=== PATIENT | female | born 1970 | race Hispanic/Latino ===

== ENCOUNTER 2016-09-22 21:22 | Inpatient (IN) | payer BC ==
[2016-09-22 21:37] VITALS: BMI 35.2
[2016-09-22] MEDS ORDERED: Morphine 4 mg/ml ISec IVP STA (21:57)
[2016-09-22] MEDS ORDERED: Sodium Chloride 0.9% 1,000 ML IV STA (21:57)
[2016-09-22 22:27] LABS: ADD MANUAL DIFF? NO
[2016-09-22 22:30] LABS: BASO # 0.03 K/mm3 (0.0-2.0); BASO % 0.3 % (0.0-3.0); EOS # 0.2 (0.0-0.7); EOS % 1.6 % (1.5-5.0); GRAN # 9.69 (1.4-6.5); GRAN % 81.6 % (50.0-68.0); HEMATOCRIT 38.8 % (36.0-48.0); LYMPH # 1.4 (1.2-3.4); LYMPH % 11.8 % (22.0-35.0); MEAN CELL VOLUME 97.7 fL (80.0-105.0); MEAN CORPUSCULAR HGB CONC 33.8 g/dl (31.0-37.0); MONO # 0.6 (0.1-0.6); MONO % 4.7 % (1.0-6.0); PH,URINE 6.5 (4.7-8.0); PLATELET COUNT 272 10^3/uL (120.0-450.0); RED CELL DISTRIBUTION WIDTH 12.6 % (11.5-14.5); URINE BILIRUBIN NEGATIVE (NEGATIVE); URINE BLOOD SMALL (NEGATIVE); URINE GLUCOSE (UA) NEGATIVE (NEGATIVE); URINE KETONE NEGATIVE (NEGATIVE); URINE LEUKOCYTE ESTERASE MODERATE Leu/uL (NEGATIVE); URINE PROTEIN NEGATIVE mg/dL (<30 mg/dL); URINE UROBILINOGEN 0.2 E.U./dL (<1 E.U./dL); WHITE BLOOD COUNT 11.9 10^3/ul (4.5-11.0)
[2016-09-22 22:31] LABS: URINE APPEARANCE SL CLOUDY (CLEAR); URINE COLOR YELLOW (YELLOW)
[2016-09-22 22:38] LABS: URINE BACTERIA FEW (NEG); URINE RBC 0 - 2 /hpf (0-2); URINE WBC 25 - 30 /hpf (0-6)
[2016-09-22 22:45] LABS: ALB/GLOB RATIO 1.4 (1.1-1.8); ALKALINE PHOSPHATASE 99 U/L (38-133); ALT/SGPT 37 U/L (7-56); AST/SGOT 23 U/L (15-39); BILIRUBIN,TOTAL 0.7 mg/dL (0.2-1.3); BLOOD UREA NITROGEN 17 mg/dL (7-21); CALCIUM 9.5 mg/dL (8.4-10.5); CARBON DIOXIDE 25 mmol/L (21-33); GFR AFRICAN-AMERICAN > 60; GLUCOSE,RANDOM 97 mg/dL (70-110); POTASSIUM 4.4 mmol/L (3.6-5.0); SODIUM 138 mmol/L (132-148); TOTAL PROTEIN 7.1 g/dL (5.8-8.3)
[2016-09-22 22:48] LABS: CHLORIDE 102 mmol/L (98-107)
[2016-09-22] MEDS ORDERED: Iohexol 350 MG/100 ML VIAL ONE (23:25)
[2016-09-23] MEDS ORDERED: Ciprofloxacin 400mg/200ml D5W 400 MG/200 ML BAG IVPB STA (01:28)
[2016-09-23] MEDS ORDERED: metroNIDAZOLE IV 500 mg/100 ml 500 MG/100 ML BAG IVPB STA (01:29)
[2016-09-23] MEDS ORDERED: Morphine 4 mg/ml ISec IVP STA (01:30)
--- NOTE | 2016-09-23 01:35 | ED PDOC ---
Arrival/HPI - General Chief Complaint: Abdominal Pain Time Seen by Provider: 09/22/16 21:56 Historian: Patient - History of Present Illness Narrative History of Present Illness (Text): 09/23/16 03:31 46yr old female presents today with left lower quadrant abdominal pain with hx of diverticulitis. pt states she had a 2 weeks ago. pt states that she started yesterday with slight left sided abdominal cramping and pain very similar to her previous bouts of diverticulitis in the past. Patient states she' s been taking Percocet for pain at home without improvement in her symptoms. Patient presents today with severe left lower quadrant abdominal pain that is drastically worsened since yesterday. Complaining of urinary frequency no dysuria or urgency. Patient states the pain radiates to the back. She describes the pain as sharp stabbing and constant. She denies nausea or vomiting. No dizziness or weakness. No other complaints Past Medical History - Provider Review Nursing Documentation Reviewed: Yes - Travel History Have you recently traveled outside [place] w/in the past 3 mons?: No - Infectious Disease Hx of Infectious Diseases: None - Cardiac Hx Cardiac Disorders: No - Pulmonary Hx Respiratory Disorders: No - Neurological Hx Neurological Disorder: No - HEENT Hx HEENT Disorder: No - Renal Hx Renal Disorder: No - Endocrine/Metabolic Hx Endocrine Disorders: No - Hematological/Oncological Hx Blood Disorders: No - Integumentary Hx Dermatological Disorder: No - Musculoskeletal/Rheumatological Hx Musculoskeletal Disorders: No - Gastrointestinal Hx Gastrointestinal Disorders: Yes Hx Diverticulitis: Yes (2010) - Genitourinary/Gynecological Hx Genitourinary Disorders: No - Psychiatric Hx Psychophysiologic Disorder: No Hx Substance Use: No - Surgical History Hx Section: Yes (x3) Hx Cholecystectomy: Yes Other/Comment: tummy tuck and breast lift - Anesthesia Hx Anesthesia: Yes Hx Anesthesia Reactions: No Hx Malignant Hyperthermia: No Family/Social History - Physician Review Nursing Documentation Reviewed: Yes Family/Social History: Unknown Family HX Smoking Status: denies Hx Alcohol Use: No Hx Substance Use: No Allergies/Home Meds Allergies/Adverse Reactions: Allergies No Known Allergies Allergy (Verified 09/22/16 21:37) Home Medications: Home Meds Medication Instructions Recorded Confirmed Vit No.126/Iron/Folic 1 tab PO DAILY 09/23/16 09/23/16 [Prenavite] Review of Systems - Review of Systems Constitutional: absent: Fatigue, Fevers Respiratory: absent: SOB, Cough Cardiovascular: absent: Chest Pain, Palpitations Gastrointestinal: Abdominal Pain. absent: Constipation, Nausea, Vomiting, Appetite Changes Genitourinary Female: Frequency. absent: Dysuria, Hematuria, Vaginal Bleeding, Vaginal Discharge Musculoskeletal: Back Pain. absent: Arthralgias, Neck Pain Skin: absent: Rash, Pruritis Neurological: absent: Headache, Dizziness Psychiatric: absent: Anxiety, Depression Physical Exam Vital Signs Reviewed: Yes Vital Signs Temp Pulse Resp BP Pulse Ox 09/23/16 02:34 87 16 109/71 98 09/23/16 02:27 89 16 109/71 96 09/23/16 00:39 99.3 F 88 16 120/75 95 09/22/16 21:37 98.1 F 108 H 18 127/89 97 Temperature: Afebrile Blood Pressure: Normal Pulse: Tachycardic Respiratory Rate: Normal Appearance: Positive for: Well-Appearing, Non-Toxic, Uncomfortable Pain Distress: Moderate Mental Status: Positive for: Alert and Oriented X 3 - Systems Exam Head: Present: Atraumatic Mouth: Present: Moist Mucous Membranes Neck: Present: Normal Range of Motion Respiratory/Chest: Present: Clear to Auscultation, Good Air Exchange. No: Respiratory Distress, Accessory Muscle Use Cardiovascular: Present: Regular Rate and Rhythm, Normal S1, S2. No: Murmurs Abdomen: Present: Tenderness (+ LLQ tenderness. ), Normal Bowel Sounds, Guarding. No: Distention, Peritoneal Signs, Rebound, McBurney's Point Tender Back: Present: Normal Inspection. No: CVA Tenderness, Midline Tenderness, Paraspinal Tenderness Upper Extremity: Present: Normal Inspection Lower Extremity: Present: Normal Inspection Neurological: Present: GCS=15 Skin: Present: Warm, Dry, Normal Color. No: Rashes Psychiatric: Present: Alert, Oriented x 3 Medical Decision Making ED Course and Treatment: 09/23/16 01:35 Patient is nontoxic well appearing with stable vital signs presenting with [ severe] abdominal pain CBC wbc;11.9 CMP wnl Urinalysis: moderate leukocytes, 20-25wbcs. CAT scan: FINDINGS: Lower thorax: No acute findings. ABDOMEN: Liver: No acute findings. No mass. Gallbladder and bile ducts: No acute findings. No calcified stones. No ductal dilation. Pancreas: No acute findings. No mass. No ductal dilation. Spleen: No acute findings. No splenomegaly. Adrenals: No acute findings. No mass. Kidneys and ureters: No acute findings. No solid mass. No hydronephrosis. Stomach and bowel: There is diverticulosis. There is bowel wall thickening and a moderate amount of stranding adjacent to the sigmoid colon. The small adjacent fluid. Appendix: No findings to suggest acute appendicitis. PELVIS: Bladder: No acute findings. No mass. Reproductive: No acute findings. ABDOMEN and PELVIS: Intraperitoneal space: No acute findings. No free air. No significant fluid collection. Bones/joints: There are bilateral L5 pars interarticularis defects. No acute fracture. No dislocation. Soft tissues: Postoperative changes noted in the lower intra-abdominal wall. There is small fluid within the subcutaneous fatty tissues, possibly postoperative. Vasculature: No acute findings. No abdominal aortic aneurysm. Lymph nodes: No acute findings. No enlarged lymph nodes. IMPRESSION: 1. There is diverticulosis. There is bowel wall thickening and a moderate amount of stranding adjacent to the sigmoid colon. The small adjacent fluid. Findings consistent with diverticulitis. 2. Postoperative changes noted in the lower intra-abdominal wall. There is small fluid within the subcutaneous fatty tissues, possibly postoperative. Patient reassessment: pt with continued pain despite morphine and toradol. pt of dr. fowler/orly; case discussed with dr. sanches; accepts admission to med/surg for diverticulitis, UTI, and leukocytosis. blood cultures pending cipro IV and flagyl IV ordered. Discussed all results with patient in depth Impression: diverticulitis, UTI, leukocytosis admit to med/surg. - Lab Interpretations Lab Results: 09/22/16 22:21 09/22/16 22:21 Lab Results 09/22/16 22:21: WBC 11.9 H D, RBC 3.97, Hgb 13.1, Hct 38.8, MCV 97.7, MCH 33.0, MCHC 33.8, RDW 12.6, Plt Count 272, MPV 10.0, Gran % 81.6 H, Lymph % (Auto) 11.8 L, [place] % (Auto) 4.7, Eos % (Auto) 1.6, Baso % (Auto) 0.3, Gran # 9.69 H, Lymph # 1.4, [place] # 0.6, Eos # 0.2, Baso # 0.03 09/22/16 22:21: Sodium 138, Potassium 4.4, Chloride 102, Carbon Dioxide 25, Anion Gap 15, BUN 17, Creatinine 0.7, Est GFR ( Amer) > 60, Est GFR (Non- Af Amer) > 60, Random Glucose 97, Calcium 9.5, Total Bilirubin 0.7, AST 23, ALT 37, Alkaline Phosphatase 99, Total Protein 7.1, Albumin 4.1, Globulin 3.0, Albumin/Globulin Ratio 1.4 09/22/16 22:21: Urine Color Yellow, Urine Appearance Sl cloudy, Urine pH 6.5, Ur Specific [place] 1.020, Urine Protein Negative, Urine Glucose (UA) Negative, Urine Ketones Negative, Urine Blood Small H, Urine Nitrate Negative, Urine Bilirubin Negative, Urine Urobilinogen 0.2, Ur Leukocyte Esterase Moderate H, Urine RBC 0 - 2, Urine WBC 25 - 30, Ur Epithelial Cells 1 - 3, Urine Bacteria Few - RAD Interpretation Radiology Orders: 09/22/16 21:57 ABD & PELVIS IV CONTRAST ONLY [CT] Stat CHEST PORTABLE [RAD] Stat - Medication Orders Current Medication Orders: Metronidazole (Flagyl) 500 mg in 100 mls @ 100 mls/hr IVPB Q8H DANIELLE PRN Reason: Protocol Ceftriaxone Sodium (Rocephin 1 Gram Ivpb) 1 gm in 100 mls @ 100 mls/hr IVPB DAILY DANIELLE PRN Reason: Protocol Sodium Chloride (Sodium Chloride 0.9%) 1,000 mls @ 100 mls/hr IV .Q10H DANIELLE Morphine Sulfate (Morphine) 4 mg IVP Q3H PRN PRN Reason: Pain, severe (8-10) Last Admin: 09/23/16 02:57 Dose: 4 mg Morphine Sulfate (Morphine) 2 mg IVP Q3H PRN PRN Reason: Pain, moderate (4-7) Ondansetron HCl (Zofran Inj) 4 mg IVP Q6H PRN PRN Reason: Nausea/Vomiting Pantoprazole Sodium (Protonix Inj) 40 mg IVP DAILY DANIELLE Discontinued Medications Sodium Chloride (Sodium Chloride 0.9%) 1,000 mls @ 999 mls/hr IV .Q1H1M STA Stop: 09/22/16 22:57 Last Admin: 09/22/16 22:25 Dose: 999 mls/hr Ciprofloxacin (Cipro 400mg/200ml Dsw) 400 mg in 200 mls @ 133.3 mls/hr IVPB STAT STA PRN Reason: Protocol Stop: 09/23/16 02:58 Metronidazole (Flagyl) 500 mg in 100 mls @ 100 mls/hr IVPB STAT STA PRN Reason: Protocol Stop: 09/23/16 02:28 Last Admin: 09/23/16 01:43 Dose: 100 mls/hr Iohexol (Omnipaque 350 100 Ml) Confirm Administered Dose 350 mg .ROUTE .STK-MED ONE Stop: 09/22/16 23:26 Ketorolac Tromethamine (Toradol) 30 mg IVP STAT STA Stop: 09/22/16 23:16 Last Admin: 09/23/16 00:17 Dose: 30 mg Morphine Sulfate (Morphine) 4 mg IVP STAT STA Stop: 09/22/16 21:58 Last Admin: 09/22/16 22:24 Dose: 4 mg Morphine Sulfate (Morphine) 4 mg IVP STAT STA Stop: 09/23/16 01:31 Last Admin: 09/23/16 01:46 Dose: Not Given Non-Admin Reason: Patient Refused Ondansetron HCl (Zofran Inj) 4 mg IVP STAT STA Stop: 09/22/16 21:58 Last Admin: 09/22/16 22:25 Dose: 4 mg Disposition/Present on Arrival - Present on Arrival Any Indicators Present on Arrival: No History of DVT/PE: No History of Uncontrolled Diabetes: No Urinary Catheter: No History of Decub. Ulcer: No History Surgical Site Infection Following: None - Disposition Have Diagnosis and Disposition been Completed?: Yes Diagnosis: Diverticulitis, UTI (urinary tract infection), Leukocytosis Disposition: HOSPITALIZED Disposition Time: 01:35 Patient Plan: Observation Patient Problems: Current Active Problems Problem Status Onset Diverticulitis Acute Condition: FAIR
--- NOTE | 2016-09-23 02:03 | CP.PCM.HP ---
History of Present Illness - History of Present Illness History of Present Illness: CC: abdominal pain x 2 days HPI: 46 year old female with a past medical history of Diverticulosis presents to the emergency department with the compalint of RLQ and LLQ abdominal pain x 2 days. She reports the pain as dull and crampy with occasional sharp pains. She states trying to take po percocet at home with little to no relief so she came in to the emergency department. She denies any complaints of chest pain, shortness of breath, fever, nausea, vomiting, chills, dysuria or diarrhea. She states the pain is similar to her episodes of diverticulitis in the past which has been going on for 8 years. She also gave 2 weeks ago via and had no other complications. Past medical history: Diverticulosis x 8 years Allergies: NKDA Fam Hx: father -Diabetes Soc Hx: denies tobacco/etoh/illicit drug use Home meds: percocet prn stool softeners vitamins Present on Admission - Present on Admission Any Indicators Present on Admission: No Past Patient History - Infectious Disease Hx of Infectious Diseases: None - Past Social History Smoking Status: denies - CARDIAC Hx Cardiac Disorders: No - PULMONARY Hx Respiratory Disorders: No - NEUROLOGICAL Hx Neurological Disorder: No - HEENT Hx HEENT Problems: No - RENAL Hx Chronic Kidney Disease: No - ENDOCRINE/METABOLIC Hx Endocrine Disorders: No - HEMATOLOGICAL/ONCOLOGICAL Hx Blood Disorders: No - INTEGUMENTARY Hx Dermatological Problems: No - MUSCULOSKELETAL/RHEUMATOLOGICAL Hx Musculoskeletal Disorders: No - GASTROINTESTINAL Hx Gastrointestinal Disorders: Yes Hx Diverticulitis: Yes (2010) - GENITOURINARY/GYNECOLOGICAL Hx Genitourinary Disorders: No - PSYCHIATRIC Hx Psychophysiologic Disorder: No Hx Substance Use: No - SURGICAL HISTORY Hx Section: Yes (x3) Hx Cholecystectomy: Yes Other/Comment: tummy tuck and breast lift - ANESTHESIA Hx Anesthesia: Yes Hx Anesthesia Reactions: No Hx Malignant Hyperthermia: No Meds Allergies/Adverse Reactions: Allergies Allergy/AdvReac Type Severity Reaction Status Date / Time No Known Allergies Allergy Verified 09/22/16 21:37 Physical Exam - Constitutional Appears: Well, Non-toxic - Head Exam Head Exam: ATRAUMATIC, NORMOCEPHALIC - Eye Exam Eye Exam: EOMI, Normal appearance - ENT Exam ENT Exam: Mucous Membranes Moist - Neck Exam Neck exam: Positive for: Full Rom - Respiratory Exam Respiratory Exam: Clear to Auscultation Bilateral, NORMAL BREATHING PATTERN. absent: Rhonchi, Wheezes - Cardiovascular Exam Cardiovascular Exam: REGULAR RHYTHM, +S1, +S2 - GI/Abdominal Exam GI & Abdominal Exam: Normal Bowel Sounds, Soft, Tenderness (RLQ LLQ mildly tender to palpation). absent: Guarding, Rebound Additional comments: midline scar - Rectal Exam Rectal Exam: Deferred - Extremities Exam Extremities exam: Positive for: normal inspection. Negative for: calf tenderness - Neurological Exam Neurological exam: Alert, Oriented x3 - Psychiatric Exam Psychiatric exam: Normal Affect, Normal Mood - Skin Skin Exam: Dry, Intact, Normal Color, Warm Results - Vital Signs Recent Vital Signs: Last Vital Signs Temp 99.3 F 09/23/16 00:39 Pulse 88 09/23/16 00:39 Resp 16 09/23/16 00:39 BP 120/75 09/23/16 00:39 Pulse Ox 95 09/23/16 00:39 - Labs Result Diagrams: 09/22/16 22:21 09/22/16 22:21 Labs: Laboratory Results - last 24 hr 09/22/16 09/22/16 09/22/16 22:21 22:21 22:21 WBC 11.9 H D RBC 3.97 Hgb 13.1 Hct 38.8 MCV 97.7 MCH 33.0 MCHC 33.8 RDW 12.6 Plt Count 272 MPV 10.0 Gran % 81.6 H Lymph % (Auto) 11.8 L [place] % (Auto) 4.7 Eos % (Auto) 1.6 Baso % (Auto) 0.3 Gran # 9.69 H Lymph # 1.4 [place] # 0.6 Eos # 0.2 Baso # 0.03 Sodium 138 Potassium 4.4 Chloride 102 Carbon Dioxide 25 Anion Gap 15 BUN 17 Creatinine 0.7 Est GFR ( Amer) > 60 Est GFR (Non-Af Amer) > 60 Random Glucose 97 Calcium 9.5 Total Bilirubin 0.7 AST 23 ALT 37 Alkaline Phosphatase 99 Total Protein 7.1 Albumin 4.1 Globulin 3.0 Albumin/Globulin Ratio 1.4 Urine Color Yellow Urine Appearance Sl cloudy Urine pH 6.5 Ur Specific [place] 1.020 Urine Protein Negative Urine Glucose (UA) Negative Urine Ketones Negative Urine Blood Small H Urine Nitrate Negative Urine Bilirubin Negative Urine Urobilinogen 0.2 Ur Leukocyte Esterase Moderate H Urine RBC 0 - 2 Urine WBC 25 - 30 Ur Epithelial Cells 1 - 3 Urine Bacteria Few - EKG Data EKG Interpreted by: Myself EKG shows normal: Sinus rhythm - Imaging and Cardiology CT scan - abdomen Status: Report reviewed by me (diverticulitis and surrounding fat stranding noted) Assessment & Plan - Assessment and Plan (Free Text) Assessment: 46 year old female with a past medical history Diverticulosis comes in with a 2 day history of abdominal pain and is found to have diverticulitis along with a urinary tract infection. Plan: 1) Diverticulitis - will try a liquid diet in the AM; Morphine 2 and 4mg IV Q3 prn for mod/severe pain; flagyl started in the emergency department so we'll continue that for now 2) urinary tract infection - blood and urine cultures drawn and sent; leukocytosis noted, will treat with ceftriaxone IV 3) GI/DVT ppx - will place on po protonix and SCD's 4) Post- - patient will need education depending upon choice of antibiotics on discharge before resuming breast feeding
[2016-09-23] MEDS ORDERED: Morphine 2 mg/ml ISec IVP PRN (02:06)
[2016-09-23] MEDS: Morphine 4 mg/ml ISec IVP PRN ×5 (02:57→20:46)
[2016-09-23 03:21] VITALS: RESP 18
--- NOTE | 2016-09-23 07:53 | CT ---
PROCEDURE: CT Abdomen and Pelvis with contrast HISTORY: abd pain COMPARISON: None. TECHNIQUE: Contrast dose: 100 cc of Omni 350 Radiation dose: Total exam DLP = 1021 mGy-cm. This CT exam was performed using one or more of the following dose reduction techniques: Automated exposure control, adjustment of the mA and/or kV according to patient size, and/or use of iterative reconstruction technique. FINDINGS: LOWER THORAX: Unremarkable. LIVER: Unremarkable. No gross lesion or ductal dilatation. GALLBLADDER AND BILE DUCTS: Gallbladder removed PANCREAS: Unremarkable. No gross lesion or ductal dilatation. SPLEEN: Unremarkable. ADRENALS: Unremarkable. No mass. KIDNEYS AND URETERS: Unremarkable. No hydronephrosis. No solid mass. VASCULATURE: Unremarkable. No aortic aneurysm. BOWEL: There is diverticulitis in the sigmoid colon. There is mural thickening and mesenteric inflammation. There is no abscess formation. APPENDIX: Normal appendix. PERITONEUM: Unremarkable. No free fluid. No free air. LYMPH NODES: Unremarkable. No enlarged lymph nodes. BLADDER: Unremarkable. REPRODUCTIVE: Unremarkable. BONES: No acute fracture. OTHER FINDINGS: The report concurs with the preliminary [facility] report IMPRESSION: Sigmoid diverticulitis
--- NOTE | 2016-09-23 08:54 | RAD ---
HISTORY: abd pain COMPARISON: No prior. FINDINGS: LUNGS: No active pulmonary disease. PLEURA: No significant pleural effusion identified, no pneumothorax apparent. CARDIOVASCULAR: Normal. OSSEOUS STRUCTURES: No significant abnormalities. VISUALIZED UPPER ABDOMEN: Normal. OTHER FINDINGS: None. IMPRESSION: No active disease.
[2016-09-23] MEDS: cefTRIAXone 1 gm 1 GM/100 ML BAG IVPB SCH (10:45)
[2016-09-23] MEDS: metroNIDAZOLE IV 500 mg/100 ml 500 MG/100 ML BAG IVPB SCH ×2 (10:45→17:01)
--- NOTE | 2016-09-23 13:51 | CON ---
DATE: 09/23/2016 Seen and examined at the bedside earlier. The chart was reviewed. REQUEST FOR CONSULT: Diverticulitis. HISTORY OF PRESENT ILLNESS: This is a 46-year-old female with a past medical history of diverticulos is and diverticulitis. Her last episode was looks like 8 year ago, although patient states she had e pisodes x 6, recently gave , had a 2 weeks ago. She started complaining of right lowe r quadrant and left lower quadrant abdominal pain x 2 days, describes it as dull and crampy with occa sional sharpness. The patient has been taking Percocet at home with no relief that she received from after her . Denies any nausea, vomiting, but did feel chills. No reports of any change in bowel habits. She actually had a formed stool with no difficulty. No blood, no melena or bright re d blood per rectum. She has been having some abdominal discomfort even 2 weeks prior to the wi th cramping feeling intermittently. Her last colonoscopy was about 6 years ago with ____, found to have diverticulosis. She was recommended elective surgery. She goes on further to explain that s he feels that control was helping with her symptoms. When she starts menstrual periods, she do es notice an increase in bowel movements. Also, while she was on control, she did not have any issues with symptoms of diverticulitis and since she has been off of the control in lieu of ge tting , she has noticed that she has had a few episodes. Denies any unintentional weight los s, although she has been recently never had an endoscopy. No complaints of any reflux sympt oms. PAST MEDICAL HISTORY: Diverticulosis. PAST SURGICAL HISTORY: She had a cholecystectomy and x 3, tummy tuck and breast lift. SOCIAL HISTORY: Denies any tobacco use, ETOH or substance abuse. FAMILY HISTORY: Father with diabetes. MEDICATIONS: Reviewed as per MAR. REVIEW OF SYSTEMS: Systems reviewed with positive findings, see HPI. She did have a CT scan of the abdomen and pelvis with IV contrast and showed sigmoid diverticulitis, no abscess formation noted. C hest x-ray: No active pulmonary disease. No pleural effusion or pneumothorax. VITAL SIGNS: Temperature is 98.1, blood pressure 103/77, pulse 77, respirations 18, 98 on room air. LABORATORY DATA: WBCs 11.9, H and H is 13.1 and 38.8, platelets are 272. Sodium 138, K is 4.4, BUN 17, creatinine 0.7. Total bilirubin is 0.7, AST 23, ALT 37, alk phos is 99 Urine shows moderate lester ko esterase, small blood, negative ketones or protein. PHYSICAL EXAMINATION: HEENT: Sclerae are anicteric. NECK: Supple. CARDIAC: S1, S2. LUNGS: Clear. ABDOMEN: With bowel sounds, soft, not distended. She does have left lower quadrant tenderness. No rebound or guarding. EXTREMITIES: Positive pedal pulses, no edema. NEUROLOGIC: Awake, alert, and oriented. ASSESSMENT: This is a 46-year-old female with a past medical history of diverticulosis/diverticuliti s, status post recent section 2 weeks ago, comes with abdominal pain, status post CT scan sh owing sigmoid diverticulitis, no perforation. The patient also with urinary tract infection. PLAN: Currently on clear liquid diet. She is tolerating, can continue that. Also, continue on ceft riaxone as well as the Flagyl. She gets morphine for pain. Continue GI prophylaxis, on Protonix and is on IV fluids for hydration. Thank you for this consult and for allowing us to participate in your patient's care. We will make rhiannon jimenez recommendations based upon patient's clinical course. The patient was seen and case discussed with Dr. Kimbrough. Loyda EVERETT cc: [id number] TT: 09/23/2016 13:50:40 Confirmation # [id number] Dictation # [id number]
--- NOTE | 2016-09-23 14:10 | CP.PCM.CON ---
History of Present Illness - History of Present Illness History of Present Illness: Surgery Consult: Dr. Morrison Pt is a 46F 2 weeks from a , who presented [place] [facility] [place] complaints of lower abdominal pain. Pt has a PMHx significant for diverticulosis with multiple bouts of diverticulitis. States pain started 2 days ago and kept getting worse so she decided to come to the hospital. Denies any bloody BMs. Pt has been told to follow up with surgery in the past, but she states she was told it's elective so she never got around to it. In the ER, pt had a CT abdomen/pelvis which showed sigmoid diverticulitis with mural thickening and mesenteric inflammation. Pt was admitted and surgery has been consulted to evaluate. Currently, pt states she is feeling slightly better but pain is only controlled due to the IV pain meds. She denies N/V, F/C, chest pain or SOB. Pt states her last colonoscopy was 6 years ago. PMHx: diverticulosis with diverticulitis PSHx: x 3, tummy tuck SocialHx: former smoker [id number]; social EtOH FamilyHx: Mom from ovarian CA & leukemia NKDA Review of Systems - Review of Systems All systems: reviewed and no additional remarkable complaints except (as per HPI ) Past Patient History - Infectious Disease Hx of Infectious Diseases: None - Past Social History Smoking Status: Former Smoker Alcohol: Social - CARDIAC Hx Cardiac Disorders: No - PULMONARY Hx Respiratory Disorders: No - NEUROLOGICAL Hx Neurological Disorder: No - HEENT Hx HEENT Problems: No - RENAL Hx Chronic Kidney Disease: No - ENDOCRINE/METABOLIC Hx Endocrine Disorders: No - HEMATOLOGICAL/ONCOLOGICAL Hx Blood Disorders: No - INTEGUMENTARY Hx Dermatological Problems: No - MUSCULOSKELETAL/RHEUMATOLOGICAL Hx Musculoskeletal Disorders: No - GASTROINTESTINAL Hx Gastrointestinal Disorders: Yes Hx Diverticulitis: Yes (2010) - GENITOURINARY/GYNECOLOGICAL Hx Genitourinary Disorders: No - PSYCHIATRIC Hx Psychophysiologic Disorder: No Hx Substance Use: No - SURGICAL HISTORY Hx Surgeries: Yes Hx Section: Yes (x3) Other/Comment: tummy tuck and breast lift - ANESTHESIA Hx Anesthesia: Yes Hx Anesthesia Reactions: No Hx Malignant Hyperthermia: No Meds Allergies/Adverse Reactions: Allergies Allergy/AdvReac Type Severity Reaction Status Date / Time No Known Allergies Allergy Verified 09/22/16 21:37 - Medications Medications: Current Medications Metronidazole (Flagyl) 500 mg in 100 mls @ 100 mls/hr IVPB Q8H DANIELLE PRN Reason: Protocol Last Admin: 09/23/16 10:45 Dose: 100 mls/hr Ceftriaxone Sodium (Rocephin 1 Gram Ivpb) 1 gm in 100 mls @ 100 mls/hr IVPB DAILY DANIELLE PRN Reason: Protocol Last Admin: 09/23/16 10:45 Dose: 100 mls/hr Sodium Chloride (Sodium Chloride 0.9%) 1,000 mls @ 100 mls/hr IV .Q10H [facility] Morphine Sulfate (Morphine) 4 mg IVP Q3H PRN PRN Reason: Pain, severe (8-10) Last Admin: 09/23/16 12:03 Dose: 4 mg Morphine Sulfate (Morphine) 2 mg IVP Q3H PRN PRN Reason: Pain, moderate (4-7) Ondansetron HCl (Zofran Inj) 4 mg IVP Q6H PRN PRN Reason: Nausea/Vomiting Pantoprazole Sodium (Protonix Inj) 40 mg IVP DAILY [facility] Last Admin: 09/23/16 10:45 Dose: 40 mg Physical Exam - Constitutional Appears: Well, No Acute Distress - Head Exam Head Exam: ATRAUMATIC, NORMOCEPHALIC - Eye Exam Eye Exam: Normal appearance - ENT Exam ENT Exam: Mucous Membranes Moist - Respiratory Exam Respiratory Exam: NORMAL BREATHING PATTERN - Cardiovascular Exam Cardiovascular Exam: RRR - GI/Abdominal Exam GI & Abdominal Exam: Soft, Tenderness (LLQ ). absent: Distended, Guarding, Rebound - Extremities Exam Extremities exam: Negative for: tenderness - Neurological Exam Neurological exam: Alert, Oriented x3 - Skin Skin Exam: Dry, Warm Results - Vital Signs Recent Vital Signs: Last Vital Signs Temp 98.1 F 09/23/16 07:21 Pulse 77 09/23/16 07:21 Resp 18 09/23/16 07:21 BP 103/77 09/23/16 07:21 Pulse Ox 98 09/23/16 07:21 - Labs Result Diagrams: 09/22/16 22:21 09/22/16 22:21 - Imaging and Cardiology CT scan - abdomen Status: Image reviewed by me, Report reviewed by me Assessment & Plan - Assessment and Plan (Free Text) Assessment: 46F with acute diverticulitis Plan: - IV ABX - GI is on board - Need for surgery due to pt's multiple bouts of diverticulitis was discussed with pt in detail. It was explained to her that surgery will be elective however is highly recommended so that she can avoid complications of a future attack such as perforation etc. - Advance diet as per GI recs - d/w Dr. Prince Barber, PGY-2 Surgery
[2016-09-23] MEDS: Sodium Chloride 0.9% 1,000 ML IV SCH ×2 (16:49→16:57)
[2016-09-24] MEDS: metroNIDAZOLE IV 500 mg/100 ml 500 MG/100 ML BAG IVPB SCH ×3 (03:01→17:22)
[2016-09-24] MEDS: Morphine 4 mg/ml ISec IVP PRN (03:30)
[2016-09-24 06:56] LABS: ADD MANUAL DIFF? NO
[2016-09-24 07:07] LABS: BASO # 0.04 K/mm3 (0.0-2.0); BASO % 0.6 % (0.0-3.0); EOS # 0.2 (0.0-0.7); EOS % 2.1 % (1.5-5.0); GRAN # 5.23 (1.4-6.5); HEMATOCRIT 35.8 % (36.0-48.0); LYMPH # 1.4 (1.2-3.4); LYMPH % 19.1 % (22.0-35.0); MEAN CELL VOLUME 99.7 fL (80.0-105.0); MEAN CORPUSCULAR HEMOGLOBIN 32.3 pg (25.0-35.0); MEAN CORPUSCULAR HGB CONC 32.4 g/dl (31.0-37.0); MONO # 0.5 (0.1-0.6); MONO % 6.2 % (1.0-6.0); PLATELET COUNT 249 10^3/uL (120.0-450.0); RED CELL DISTRIBUTION WIDTH 12.5 % (11.5-14.5); WHITE BLOOD COUNT 7.3 10^3/ul (4.5-11.0)
--- NOTE | 2016-09-24 08:30 | CP.PCM.PN ---
Subjective - Date & Time of Evaluation Date of Evaluation: 09/24/16 Time of Evaluation: 07:15 - Subjective Subjective: Gen Surg: Dr. Morrison Patient seen and examined this AM. Patient reports improved abdominal pain. However, states she feels some soreness and cramping along lower abdominal region. Patient denies n/v, denies BM. Tolerating liquid diet. Objective - Vital Signs/Intake and Output Vital Signs (last 24 hours): Temp Pulse Resp BP Pulse Ox 98.3 F 67 18 116/74 98 09/24/16 07:30 09/24/16 07:30 09/24/16 07:30 09/24/16 07:30 09/24/16 07:30 Intake and Output: 09/24/16 09/24/16 06:59 18:59 Intake Total 3300 Balance 3300 - Medications Medications: Current Medications Metronidazole (Flagyl) 500 mg in 100 mls @ 100 mls/hr IVPB Q8H DANIELLE PRN Reason: Protocol Last Admin: 09/24/16 03:01 Dose: 100 mls/hr Ceftriaxone Sodium (Rocephin 1 Gram Ivpb) 1 gm in 100 mls @ 100 mls/hr IVPB DAILY DANIELLE PRN Reason: Protocol Last Admin: 09/23/16 10:45 Dose: 100 mls/hr Sodium Chloride (Sodium Chloride 0.9%) 1,000 mls @ 100 mls/hr IV .Q10H [facility] Last Admin: 09/23/16 16:57 Dose: 100 mls/hr Morphine Sulfate (Morphine) 4 mg IVP Q3H PRN PRN Reason: Pain, severe (8-10) Last Admin: 09/24/16 03:30 Dose: 4 mg Morphine Sulfate (Morphine) 2 mg IVP Q3H PRN PRN Reason: Pain, moderate (4-7) Ondansetron HCl (Zofran Inj) 4 mg IVP Q6H PRN PRN Reason: Nausea/Vomiting Pantoprazole Sodium (Protonix Inj) 40 mg IVP DAILY [facility] Last Admin: 09/23/16 10:45 Dose: 40 mg - Labs Labs: 09/24/16 06:54 - Constitutional Appears: No Acute Distress - Head Exam Head Exam: NORMOCEPHALIC - Eye Exam Eye Exam: Normal appearance Pupil Exam: NORMAL ACCOMODATION - ENT Exam ENT Exam: Mucous Membranes Moist - Respiratory Exam Respiratory Exam: NORMAL BREATHING PATTERN - Cardiovascular Exam Cardiovascular Exam: +S1, +S2 - GI/Abdominal Exam GI & Abdominal Exam: Soft, Tenderness. absent: Distended, Guarding Additional comments: lower abdominal tenderness - Extremities Exam Extremities Exam: absent: Pedal Edema - Neurological Exam Neurological Exam: Alert, Awake, Oriented x3 - Psychiatric Exam Psychiatric exam: Normal Mood - Skin Skin Exam: Dry, Intact, Warm Assessment and Plan - Assessment and Plan (Free Text) Assessment: 46F with acute sigmoid diverticulitis - C.w IV ABX - GI is on board, advance diet as per GI recs -Patient to have outpatient colonoscopy in ~6-8 weeks, as per GI recs - Need for surgery due to pt's multiple bouts of diverticulitis was discussed with pt in detail. It was explained to her that surgery will be elective however is highly recommended so that she can avoid complications of a future attack such as perforation etc. - Further recs per Dr. Morrison
[2016-09-24 08:46] LABS: ALB/GLOB RATIO 1.1 (1.1-1.8); ALKALINE PHOSPHATASE 85 U/L (38-133); ALT/SGPT 32 U/L (7-56); AST/SGOT 34 U/L (15-39); BILIRUBIN,TOTAL 0.5 mg/dL (0.2-1.3); BLOOD UREA NITROGEN 8 mg/dL (7-21); CALCIUM 8.5 mg/dL (8.4-10.5); CARBON DIOXIDE 26 mmol/L (21-33); CHLORIDE 104 mmol/L (95-110); GFR AFRICAN-AMERICAN > 60; GLUCOSE,RANDOM 72 mg/dL (70-110); POTASSIUM 3.7 mmol/L (3.6-5.0); SODIUM 141 mmol/L (132-148); TOTAL PROTEIN 6.8 g/dL (5.8-8.3)
[2016-09-24] MEDS: cefTRIAXone 1 gm 1 GM/100 ML BAG IVPB SCH (09:24)
--- NOTE | 2016-09-24 09:26 | CON ---
DATE: 09/23/2016 ADDENDUM This is an addendum to the GI consultation report dictated by Loyda Harry NP. The patient was seen and evaluated earlier. The patient did have a about more than 2 weeks ago. Has recurrent episodes of diverticulitis in the past and had a colonoscopy done many years ago . Found to have diverticulosis. The patient describes that when she was on oral contraceptive medic ations, she did not have any episodes of diverticulitis. The patient denies having any diagnosis of endometriosis. On examination the abdomen was soft. There was some tenderness present in the suprapubic and also le ft lower quadrant. The CAT scan was reviewed. The present plan is to leave the patient on liquid diet. Continue the antibiotics. We would be very cautious in advancing the diet. Will continue to closely follow up her care. Thank you very much for allowing us to participate in the care of the patient. Anthony Kimbrough MD cc: [id number] TT: 09/24/2016 09:25:52 Confirmation # [id number] Dictation # [id number] [id number]
--- NOTE | 2016-09-24 14:16 | CP.PCM.PN ---
<Milind Reich - Last Filed: 09/24/16 14:06> Subjective - Date & Time of Evaluation Date of Evaluation: 09/24/16 Time of Evaluation: 10:00 - Subjective Subjective: Medicine Progress note. Dr. Colon Pt seen and examined at bedside. No acute events overnight. Patient states that her pain is improved compared to yesterday. She deines any F/C. No N/V/D. Tolerating Clears. Requesting to go home today. No new complaints. Objective - Vital Signs/Intake and Output Vital Signs (last 24 hours): Temp Pulse Resp BP Pulse Ox 98.3 F 67 18 116/74 98 09/24/16 07:30 09/24/16 07:30 09/24/16 07:30 09/24/16 07:30 09/24/16 07:30 Intake and Output: 09/24/16 09/24/16 06:59 18:59 Intake Total 3300 Balance 3300 - Medications Medications: Current Medications Metronidazole (Flagyl) 500 mg in 100 mls @ 100 mls/hr IVPB Q8H ADNIELLE PRN Reason: Protocol Last Admin: 09/24/16 09:24 Dose: 100 mls/hr Ceftriaxone Sodium (Rocephin 1 Gram Ivpb) 1 gm in 100 mls @ 100 mls/hr IVPB DAILY DANIELLE PRN Reason: Protocol Last Admin: 09/24/16 09:24 Dose: 100 mls/hr Sodium Chloride (Sodium Chloride 0.9%) 1,000 mls @ 100 mls/hr IV .Q10H [facility] Last Admin: 09/23/16 16:57 Dose: 100 mls/hr Morphine Sulfate (Morphine) 4 mg IVP Q3H PRN PRN Reason: Pain, severe (8-10) Last Admin: 09/24/16 03:30 Dose: 4 mg Morphine Sulfate (Morphine) 2 mg IVP Q3H PRN PRN Reason: Pain, moderate (4-7) Ondansetron HCl (Zofran Inj) 4 mg IVP Q6H PRN PRN Reason: Nausea/Vomiting Pantoprazole Sodium (Protonix Inj) 40 mg IVP DAILY [facility] Last Admin: 09/24/16 09:28 Dose: Not Given - Labs Labs: 09/24/16 06:54 09/24/16 06:54 - Constitutional Appears: Well, No Acute Distress - Head Exam Head Exam: ATRAUMATIC, NORMAL INSPECTION, NORMOCEPHALIC - Eye Exam Eye Exam: EOMI, Normal appearance. absent: Scleral icterus - ENT Exam ENT Exam: Mucous Membranes Moist - Neck Exam Neck Exam: Full ROM - Respiratory Exam Respiratory Exam: Clear to Ausculation Bilateral, NORMAL BREATHING PATTERN - Cardiovascular Exam Cardiovascular Exam: RRR, +S1, +S2. absent: JVD - GI/Abdominal Exam GI & Abdominal Exam: Soft Additional comments: Tender to palpation lower abdomen, LLQ. No rebound, no peritoneal signs. No guarding. - Extremities Exam Extremities Exam: Normal Inspection - Back Exam Back Exam: NORMAL INSPECTION - Neurological Exam Neurological Exam: Alert, Awake, Oriented x3 - Psychiatric Exam Psychiatric exam: Normal Affect, Normal Mood - Skin Skin Exam: Dry, Intact, Normal Color, Warm Assessment and Plan - Assessment and Plan (Free Text) Assessment: 46yo F with PMHx of Diverticulosis comes in with a 2 day history of abdominal pain and is found to have diverticulitis along with a urinary tract infection. 1) Diverticulitis Tolerating Clears. Will advance diet to Full liquid Morphine 2 and 4mg IV Q3 prn for mod/severe pain Rocephin and flagyl GI consulted, Dr. Kimbrough, appreciate recs Very cautiously advance diet Surgery consulted, Dr. Morrison, appreciate recs Consider elective surgery as out-patient due to multiple episodes of diverticulitis ID consulted, Dr. Masterson, appreciate recs Patient is currently breast feeding her . Patient was recommended to switch to bottle feeds while she is getting antibiotics. Patient is to Pump and discard breast milk until 48hours after the last dose of antibiotics. Patient understands and agrees with plan May D/C with Augmentin and Flagyl once ready for discharge. 2) Urinary tract infection blood and urine cultures NGTD On Rocephin 3) PPx SCDs Protonix Discussed case with Dr. Isaiah Reich PGY1 <Dori Colon - Last Filed: 09/24/16 14:44> Objective - Vital Signs/Intake and Output Vital Signs (last 24 hours): Temp Pulse Resp BP Pulse Ox 98.3 F 67 18 116/74 98 09/24/16 07:30 09/24/16 07:30 09/24/16 07:30 09/24/16 07:30 09/24/16 07:30 Intake and Output: 09/24/16 09/24/16 06:59 18:59 Intake Total 3300 Balance 3300 - Medications Medications: Current Medications Metronidazole (Flagyl) 500 mg in 100 mls @ 100 mls/hr IVPB Q8H [facility] PRN Reason: Protocol Last Admin: 09/24/16 09:24 Dose: 100 mls/hr Ceftriaxone Sodium (Rocephin 1 Gram Ivpb) 1 gm in 100 mls @ 100 mls/hr IVPB DAILY [facility] PRN Reason: Protocol Last Admin: 09/24/16 09:24 Dose: 100 mls/hr Sodium Chloride (Sodium Chloride 0.9%) 1,000 mls @ 100 mls/hr IV .Q10H [facility] Last Admin: 09/23/16 16:57 Dose: 100 mls/hr Morphine Sulfate (Morphine) 4 mg IVP Q3H PRN PRN Reason: Pain, severe (8-10) Last Admin: 09/24/16 03:30 Dose: 4 mg Morphine Sulfate (Morphine) 2 mg IVP Q3H PRN PRN Reason: Pain, moderate (4-7) Ondansetron HCl (Zofran Inj) 4 mg IVP Q6H PRN PRN Reason: Nausea/Vomiting Pantoprazole Sodium (Protonix Inj) 40 mg IVP DAILY [facility] Last Admin: 09/24/16 09:28 Dose: Not Given - Labs Labs: 09/24/16 06:54 09/24/16 06:54 Attending/Attestation - Attestation I have personally seen and examined this patient.: Yes I have fully participated in the care of the patient.: Yes I have reviewed all pertinent clinical information, including history, physical exam and plan: Yes Notes (Text): 09/24/16 14:32 46 year old female with past medical history of recurrent diverticulitis presented with complaint of abdominal pain. She was found to have sigmoid diverticulitis on CT scan. She was seen by GI and surgery. Continue with iv antibiotics as per ID. She was recommended to switch to bottle feeds while she is on antibiotics and further recommendations as above. She reports her pain is better today; will advance to full liquid diet. She will need elective colonoscopy and well as elective surgery diet to recurrent bouts of diverticulitis. Dori Colon MD Hospitalist.
--- NOTE | 2016-09-24 18:56 | CON ---
DATE: 09/24/2016 The patient is in room 561, bed 2. The patient seen earlier this morning. CHIEF COMPLAINT: For antibiotic therapy during . HISTORY OF PRESENT ILLNESS: This 46-year-old female with history of diverticulitis, who was admitted with abdominal pain. The patient has a 2-week old child at home that she is nursing and infectious consultation requested for antibiotic choice for a nursing mother. REVIEW OF SYSTEMS: Reveals the patient does have abdominal pain. No nausea, vomiting. No chest hosea n, no fevers. She has had episodes of diverticulitis in the past. She has had a colonoscopy in the past also by Dr. An. No dysuria, no frequency, no headaches or blurred vision, no neck pain. PAST MEDICAL HISTORY: Significant for diverticulitis and diverticulosis. PAST SURGICAL HISTORY: Significant for x 2 and colonoscopy and cholecystectomy. ALLERGIES: The patient has no known allergies. MEDICATIONS: At home are reviewed and the vitamins she takes. PHYSICAL EXAMINATION: GENERAL: She is in bed, answering questions appropriately. She is awake and alert. VITAL SIGNS: Temperature is 98, heart rate of 87 it was up to 108 on admission, respiratory rate of 18, blood pressure 105/71. The patient is saturating at 94%. BMI of 35. HEENT: Unremarkable. NECK: Supple. LUNGS: Have decreased breath sounds. HEART: Normal S1, S2. ABDOMEN: Soft, minimal tenderness. No rebound, no guarding, no masses. LABORATORY EXAMINATION: Reveals a white count of 11,900, hemoglobin of 13, platelets of 272. BUN of 17, creatinine of 0.7. Urinalysis reveals 25-30 WBCs. Microbiology reveals the blood cultures are no growth. Urine cultures are no growth. CAT scan of the abdomen and pelvis reveals acute diverticu litis. Chest x-ray is negative. ASSESSMENT AND PLAN: A 46-year-old female with a history of diverticulitis, now presenting with abdo kyler pain. Acute sigmoid diverticulitis with a 2-week old at home with which she is nursing, currently on ceftriaxone and Flagyl. I have explained to her to pump the milk and throw the milk aw ay during the time of antibiotic treatment. I have gone over the risk and benefit ratio and choices of antibiotics as outpatient also to continue the pump and discard the milk and continue to do that a t least 48-72 hours after cessation of the antibiotics before resuming nursing. She understands that she will follow the instructions. Will follow clinically closely with you. Guero Masterson MD cc: [phone] TT: 09/24/2016 18:55:14 Confirmation # [id number] Dictation # [id number]
--- NOTE | 2016-09-24 23:33 | PN ---
DATE: 09/24/2016 SUBJECTIVE: This patient was seen and evaluated earlier. I discussed with the patient at length. The patient has been feeling much improved, but still has some discomfort in the lower abdomen. PHYSICAL EXAMINATION: VITAL SIGNS: Temperature is 98.2, pulse 58, blood pressure 123/70 and respirations 18. HEENT: Atraumatic. Anicteric. NECK: Supple. HEART: S1, S2 heard. LUNGS: Bilateral air entry present. ABDOMEN: Soft. There was tenderness in the suprapubic area. EXTREMITIES: No edema and no cyanosis. LABORATORY DATA: Hemoglobin 11.6, hematocrit 35.8, WBC 7.3 and platelets 247. BUN 8 and creatinine 0.7. IMPRESSION: This is a 46-year-old patient who was admitted with an acute diverticulitis. The patient did have moderate to severe diverticulitis and has significant pericolonic infiltration/ inflammation noticed, but clinically appears to be improving. ____ clear liquid diet now, will advance the diet to soft diet. The patient wants to go home to spend Mother's Day with a child. The patient will be switched over to a full liquid diet, then if tolerate recommend soft low residue diet initially and complete the antibiotic course as per the ID. Thank you very much for allowing us to participate in the care of the patient. The patient may benefit from elective colonoscopic evaluation. Anthony Kimbrough MD cc: [phone] TT: 09/24/2016 23:32:52 Confirmation # [id number] Dictation # [id number] [id number]
[2016-09-25] MEDS: metroNIDAZOLE IV 500 mg/100 ml 500 MG/100 ML BAG IVPB SCH ×2 (01:35→09:29)
[2016-09-25 07:34] LABS: ADD MANUAL DIFF? NO
[2016-09-25] MEDS: Sodium Chloride 0.9% 1,000 ML IV SCH (07:43)
[2016-09-25 07:45] LABS: BASO # 0.05 K/mm3 (0.0-2.0); EOS # 0.2 (0.0-0.7); EOS % 3.7 % (1.5-5.0); GRAN # 3.37 (1.4-6.5); GRAN % 65.4 % (50.0-68.0); HEMATOCRIT 36.1 % (36.0-48.0); LYMPH # 1.2 (1.2-3.4); LYMPH % 23.9 % (22.0-35.0); MEAN CELL VOLUME 98.1 fL (80.0-105.0); MEAN CORPUSCULAR HEMOGLOBIN 31.8 pg (25.0-35.0); MEAN CORPUSCULAR HGB CONC 32.4 g/dl (31.0-37.0); MEAN PLATELET VOLUME 10.2 fl (7.0-11.0); MONO # 0.3 (0.1-0.6); PLATELET COUNT 257 10^3/uL (120.0-450.0); RED CELL DISTRIBUTION WIDTH 12.2 % (11.5-14.5); WHITE BLOOD COUNT 5.2 10^3/ul (4.5-11.0)
[2016-09-25 07:56] VITALS: BP 128/88; PULSE 67; TEMP 98.1; O2SAT 100
[2016-09-25 08:07] LABS: BLOOD UREA NITROGEN 8 mg/dL (7-21); CALCIUM 9.1 mg/dL (8.4-10.5); CARBON DIOXIDE 26 mmol/L (21-33); CHLORIDE 106 mmol/L (98-107); GFR AFRICAN-AMERICAN > 60; GLUCOSE,RANDOM 85 mg/dL (70-110); SODIUM 140 mmol/L (132-148)
[2016-09-25] MEDS: cefTRIAXone 1 gm 1 GM/100 ML BAG IVPB SCH (09:27)
--- NOTE | 2016-09-25 09:37 | CP.PCM.PN ---
Subjective - Date & Time of Evaluation Date of Evaluation: 09/25/16 Time of Evaluation: 08:00 - Subjective Subjective: Surgery: Dr. Morrison Pt seen and examined. No acute overnight events. States she feels well and denies complaints. Tolerating regular diet, having BMs, and ambulating. Denies N /V, F/C. Objective - Vital Signs/Intake and Output Vital Signs (last 24 hours): Temp Pulse Resp BP Pulse Ox 98.1 F 67 18 128/88 100 09/25/16 07:56 09/25/16 07:56 09/25/16 07:56 09/25/16 07:56 09/25/16 07:56 Intake and Output: 09/25/16 09/25/16 06:59 18:59 Intake Total 600 Balance 600 - Medications Medications: Current Medications Metronidazole (Flagyl) 500 mg in 100 mls @ 100 mls/hr IVPB Q8H DANIELLE PRN Reason: Protocol Last Admin: 09/25/16 01:35 Dose: 100 mls/hr Ceftriaxone Sodium (Rocephin 1 Gram Ivpb) 1 gm in 100 mls @ 100 mls/hr IVPB DAILY DANIELLE PRN Reason: Protocol Last Admin: 09/24/16 09:24 Dose: 100 mls/hr Sodium Chloride (Sodium Chloride 0.9%) 1,000 mls @ 100 mls/hr IV .Q10H [facility] Last Admin: 09/25/16 07:43 Dose: 100 mls/hr Morphine Sulfate (Morphine) 4 mg IVP Q3H PRN PRN Reason: Pain, severe (8-10) Last Admin: 09/24/16 03:30 Dose: 4 mg Morphine Sulfate (Morphine) 2 mg IVP Q3H PRN PRN Reason: Pain, moderate (4-7) Ondansetron HCl (Zofran Inj) 4 mg IVP Q6H PRN PRN Reason: Nausea/Vomiting Pantoprazole Sodium (Protonix Inj) 40 mg IVP DAILY [facility] Last Admin: 09/24/16 09:28 Dose: Not Given - Labs Labs: 09/25/16 07:00 09/25/16 07:00 - Constitutional Appears: Well, No Acute Distress - Head Exam Head Exam: ATRAUMATIC, NORMOCEPHALIC - Eye Exam Eye Exam: Normal appearance - ENT Exam ENT Exam: Mucous Membranes Moist - Respiratory Exam Respiratory Exam: NORMAL BREATHING PATTERN - Cardiovascular Exam Cardiovascular Exam: RRR - GI/Abdominal Exam GI & Abdominal Exam: Soft. absent: Distended, Tenderness, Rebound - Extremities Exam Extremities Exam: Full ROM - Neurological Exam Neurological Exam: Alert, Awake, Oriented x3 - Skin Skin Exam: Dry, Warm Assessment and Plan - Assessment and Plan (Free Text) Assessment: 46F with acute diverticulitis; resolved Plan: - ok to DC home from surgical standpoint - pt instructed to f/u with Dr. Morrison as outpt for elective surgery for recurrent diverticulitis - d/w Dr. Prince Barber, PGY-2 Surgery
--- NOTE | 2016-09-25 09:56 | PN ---
DATE: 09/25/2016 The patient is in bed, in no acute distress, nontoxic. PHYSICAL EXAMINATION: VITAL SIGNS: Temperature is 98, blood pressure is 128/80, respiratory rate of 16. HEENT: Unremarkable. NECK: Supple. LUNGS: Have decreased breath sounds. HEART: Normal S1, S2. ABDOMEN: Soft, nontender. LABORATORY EXAMINATION: Reveals a white count of 5.2, hemoglobin of 11, platelets of 257. Chemistri es reveals a BUN of 8, creatinine of 0.7. Urinalysis is noted. Microbiology reveals the blood cultu res are negative, urine cultures are negative. ASSESSMENT AND PLAN: This is a 46-year-old female who is admitted with a history of diverticulitis. Admitted and found to have an acute sigmoid diverticulitis. The patient has a 2-week old at home, which she is a nursing. Currently on ceftriaxone and Flagyl. I have asked her to continue to pump and throw the milk away and may be switched to p.o. Augmentin upon discharge 875 p.o. b.i.d. Al so recommended to pump and throw away the milk until her antibiotic treatment is over and beyond that continue for another 48-72 hours. I have explained this in detail to the patient. She understands. She will resume after 72-48 hours of cessation of the antibiotics as outpatient. She wants to be discharged today. Guero Masterson MD cc: [phone] TT: 09/25/2016 09:55:24 Confirmation # [id number] Dictation # [id number]
--- NOTE | 2016-09-25 09:57 | CP.PCM.DIS ---
<Latricia Danielson - Last Filed: 09/26/16 09:04> Provider - Provider Date of Admission: 09/23/16 01:55 Attending physician: Dori Colon MD Primary care physician: unknown Consults: Luis E Washington Boghossian Time Spent in preparation of Discharge (in minutes): 35 Hospital Course - Lab Results Lab Results: Most Recent Lab Values WBC 5.2 10^3/ul (4.5-11.0) D 09/25/16 07:00 RBC 3.68 10^6/uL (3.5-6.1) 09/25/16 07:00 Hgb 11.7 gm/dL (12.0-16.0) L 09/25/16 07:00 Hct 36.1 % (36.0-48.0) 09/25/16 07:00 MCV 98.1 fL (80.0-105.0) 09/25/16 07:00 MCH 31.8 pg (25.0-35.0) 09/25/16 07:00 MCHC 32.4 g/dl (31.0-37.0) 09/25/16 07:00 RDW 12.2 % (11.5-14.5) 09/25/16 07:00 Plt Count 257 10^3/uL (120.0-450.0) 09/25/16 07:00 MPV 10.2 fl (7.0-11.0) 09/25/16 07:00 Gran % 65.4 % (50.0-68.0) 09/25/16 07:00 Lymph % (Auto) 23.9 % (22.0-35.0) 09/25/16 07:00 [place] % (Auto) 6.0 % (1.0-6.0) 09/25/16 07:00 Eos % (Auto) 3.7 % (1.5-5.0) 09/25/16 07:00 Baso % (Auto) 1.0 % (0.0-3.0) 09/25/16 07:00 Gran # 3.37 (1.4-6.5) 09/25/16 07:00 Lymph # 1.2 (1.2-3.4) 09/25/16 07:00 [place] # 0.3 (0.1-0.6) 09/25/16 07:00 Eos # 0.2 (0.0-0.7) 09/25/16 07:00 Baso # 0.05 K/mm3 (0.0-2.0) 09/25/16 07:00 Sodium 140 mmol/L (132-148) 09/25/16 07:00 Potassium 4.0 mmol/L (3.6-5.0) 09/25/16 07:00 Chloride 106 mmol/L (98-107) 09/25/16 07:00 Carbon Dioxide 26 mmol/L (21-33) 09/25/16 07:00 Anion Gap 12 (10-20) 09/25/16 07:00 BUN 8 mg/dL (7-21) 09/25/16 07:00 Creatinine 0.7 mg/dL (0.5-1.4) 09/25/16 07:00 Est GFR ( Amer) > 60 09/25/16 07:00 Est GFR (Non-Af Amer) > 60 09/25/16 07:00 Random Glucose 85 mg/dL (70-110) 09/25/16 07:00 Calcium 9.1 mg/dL (8.4-10.5) 09/25/16 07:00 Total Bilirubin 0.5 mg/dL (0.2-1.3) 09/24/16 06:54 AST 34 U/L (15-39) 09/24/16 06:54 ALT 32 U/L (7-56) 09/24/16 06:54 Alkaline Phosphatase 85 U/L (38-133) 09/24/16 06:54 Total Protein 6.8 g/dL (5.8-8.3) 09/24/16 06:54 Albumin 3.6 g/dL (3.0-4.8) 09/24/16 06:54 Globulin 3.2 gm/dL 09/24/16 06:54 Albumin/Globulin Ratio 1.1 (1.1-1.8) 09/24/16 06:54 Urine Color Yellow (YELLOW) 09/22/16 22:21 Urine Appearance Sl cloudy (CLEAR) 09/22/16 22:21 Urine pH 6.5 (4.7-8.0) 09/22/16 22:21 Ur Specific [place] 1.020 (1.005-1.035) 09/22/16 22:21 Urine Protein Negative mg/dL (<30 mg/dL) 09/22/16 22:21 Urine Glucose (UA) Negative mg/dL (NEGATIVE) 09/22/16 22:21 Urine Ketones Negative mg/dL (NEGATIVE) 09/22/16 22:21 Urine Blood Small (NEGATIVE) H 09/22/16 22:21 Urine Nitrate Negative (NEGATIVE) 09/22/16 22:21 Urine Bilirubin Negative (NEGATIVE) 09/22/16 22:21 Urine Urobilinogen 0.2 E.U./dL (<1 E.U./dL) 09/22/16 22:21 Ur Leukocyte Esterase Moderate Red/uL (NEGATIVE) H 09/22/16 22:21 Urine RBC 0 - 2 /hpf (0-2) 09/22/16 22:21 Urine WBC 25 - 30 /hpf (0-6) 09/22/16 22:21 Ur Epithelial Cells 1 - 3 /hpf (0-5) 09/22/16 22:21 Urine Bacteria Few (NEG) 09/22/16 22:21 - Hospital Course Hospital Course: 46 year old female with a past medical history of Diverticulosis presents with RLQ and LLQ abdominal pain x 2 days. She reports the pain as dull and crampy with occasional sharp pains. She also gave 2 weeks ago via and had no other complications. Sigmoid diverticulitis on CT scan. admitted to Med /surg for diverticulitis and UTI. Medical consults of GI, ID and surgery. Rocephin and flagyl as per ID. She was recommended to switch to bottle feeds for her infant while she is on antibiotics. She tolerated advancement of diet and discharged in stable condition with following instructions: You are discharged home. Please continue home medications with new medication of Augmentin 875 mg twice daily by mouth for 10 days, with pumping and throwing out of breast milk until 72 hours after last dose. OTC motrin for pain control. Please follow-up with gastroenterology, primary care of choice and surgery after discharge. Please return to emergency department for worsening of symptoms. Discharge Exam - Head Exam Head Exam: ATRAUMATIC, NORMOCEPHALIC - Eye Exam Eye Exam: EOMI, Normal appearance - ENT Exam ENT Exam: Mucous Membranes Moist, Normal Exam - Respiratory Exam Respiratory Exam: NORMAL BREATHING PATTERN, UNREMARKABLE - Cardiovascular Exam Cardiovascular Exam: +S1, +S2. absent: Tachycardia - GI/Abdominal Exam GI & Abdominal Exam: Soft. absent: Tenderness - Exam External exam: absent: Ecchymosis, Erythema - Extremities Exam Extremities exam: normal capillary refill, pedal pulses present - Psychiatric Exam Psychiatric exam: Normal Affect, Normal Mood - Skin Skin Exam: Intact, Normal Color Discharge Plan - Discharge Medications Prescriptions: Amoxicillin/Clavulanate [Augmentin 875 MG-125 MG] 1 tab PO BID #20 tab - Follow Up Plan Condition: STABLE Disposition: HOME/ ROUTINE Instructions: Diverticulitis (GEN), Leukocytosis (DC), Leukocytosis (GEN) Additional Instructions: You are discharged home. PLease continue home medications with new medication of Augmentin 875 mg twice daily by mouth for 10 days, with pumping and throwing out of breast milk until 72 hours after last dose. OTC motrin for pain control. Please follow-up with gastroenterology, primary care of choice and surgery after discharge. Please return to emergency department for worsening of symptoms. Referrals: Anthony Kimbrough MD [Medical Doctor] - Heron Morrison MD [Staff Provider] - <Dori Colon - Last Filed: 09/26/16 14:10> Provider - Provider Date of Admission: 09/23/16 01:55 Attending physician: Dori Colon MD Hospital Course - Lab Results Lab Results: Most Recent Lab Values WBC 5.2 10^3/ul (4.5-11.0) D 09/25/16 07:00 RBC 3.68 10^6/uL (3.5-6.1) 09/25/16 07:00 Hgb 11.7 gm/dL (12.0-16.0) L 09/25/16 07:00 Hct 36.1 % (36.0-48.0) 09/25/16 07:00 MCV 98.1 fL (80.0-105.0) 09/25/16 07:00 MCH 31.8 pg (25.0-35.0) 09/25/16 07:00 MCHC 32.4 g/dl (31.0-37.0) 09/25/16 07:00 RDW 12.2 % (11.5-14.5) 09/25/16 07:00 Plt Count 257 10^3/uL (120.0-450.0) 09/25/16 07:00 MPV 10.2 fl (7.0-11.0) 09/25/16 07:00 Gran % 65.4 % (50.0-68.0) 09/25/16 07:00 Lymph % (Auto) 23.9 % (22.0-35.0) 09/25/16 07:00 [place] % (Auto) 6.0 % (1.0-6.0) 09/25/16 07:00 Eos % (Auto) 3.7 % (1.5-5.0) 09/25/16 07:00 Baso % (Auto) 1.0 % (0.0-3.0) 09/25/16 07:00 Gran # 3.37 (1.4-6.5) 09/25/16 07:00 Lymph # 1.2 (1.2-3.4) 09/25/16 07:00 [place] # 0.3 (0.1-0.6) 09/25/16 07:00 Eos # 0.2 (0.0-0.7) 09/25/16 07:00 Baso # 0.05 K/mm3 (0.0-2.0) 09/25/16 07:00 Sodium 140 mmol/L (132-148) 09/25/16 07:00 Potassium 4.0 mmol/L (3.6-5.0) 09/25/16 07:00 Chloride 106 mmol/L (98-107) 09/25/16 07:00 Carbon Dioxide 26 mmol/L (21-33) 09/25/16 07:00 Anion Gap 12 (10-20) 09/25/16 07:00 BUN 8 mg/dL (7-21) 09/25/16 07:00 Creatinine 0.7 mg/dL (0.5-1.4) 09/25/16 07:00 Est GFR ( Amer) > 60 09/25/16 07:00 Est GFR (Non-Af Amer) > 60 09/25/16 07:00 Random Glucose 85 mg/dL (70-110) 09/25/16 07:00 Calcium 9.1 mg/dL (8.4-10.5) 09/25/16 07:00 Total Bilirubin 0.5 mg/dL (0.2-1.3) 09/24/16 06:54 AST 34 U/L (15-39) 09/24/16 06:54 ALT 32 U/L (7-56) 09/24/16 06:54 Alkaline Phosphatase 85 U/L (38-133) 09/24/16 06:54 Total Protein 6.8 g/dL (5.8-8.3) 09/24/16 06:54 Albumin 3.6 g/dL (3.0-4.8) 09/24/16 06:54 Globulin 3.2 gm/dL 09/24/16 06:54 Albumin/Globulin Ratio 1.1 (1.1-1.8) 09/24/16 06:54 Urine Color Yellow (YELLOW) 09/22/16 22:21 Urine Appearance Sl cloudy (CLEAR) 09/22/16 22:21 Urine pH 6.5 (4.7-8.0) 09/22/16 22:21 Ur Specific [place] 1.020 (1.005-1.035) 09/22/16 22:21 Urine Protein Negative mg/dL (<30 mg/dL) 09/22/16 22:21 Urine Glucose (UA) Negative mg/dL (NEGATIVE) 09/22/16 22:21 Urine Ketones Negative mg/dL (NEGATIVE) 09/22/16 22:21 Urine Blood Small (NEGATIVE) H 09/22/16 22:21 Urine Nitrate Negative (NEGATIVE) 09/22/16 22:21 Urine Bilirubin Negative (NEGATIVE) 09/22/16 22:21 Urine Urobilinogen 0.2 E.U./dL (<1 E.U./dL) 09/22/16 22:21 Ur Leukocyte Esterase Moderate Red/uL (NEGATIVE) H 09/22/16 22:21 Urine RBC 0 - 2 /hpf (0-2) 09/22/16 22:21 Urine WBC 25 - 30 /hpf (0-6) 09/22/16 22:21 Ur Epithelial Cells 1 - 3 /hpf (0-5) 09/22/16 22:21 Urine Bacteria Few (NEG) 05/11/17 22:21 Attending/Attestation - Attestation I have personally seen and examined this patient.: Yes I have fully participated in the care of the patient.: Yes I have reviewed all pertinent clinical information, including history, physical exam and plan: Yes Notes (Text): 09/25/16 46 year old female with past medical history of recurrent diverticulitis presented with complaint of abdominal pain. She was found to have sigmoid diverticulitis on CT scan. She was started on iv antibiotics. Her symptoms improved and her diet was advanced which she tolerated. She is discharged home to follow up with her pmd. Matter of bottle feeding and avoiding breast feeding while on antibiotics were discussed with patient as above. Recommended to follow up with GI for elective colonoscopy and surgery for elective surgery. Dori Colon MD Hospitalist.
== END 2016-09-25 11:43 | disposition home or self-care (01) | DRG 776 ==
LOC: ED 21:22 → ERH 09-23 01:55 → 5RNO 09-23 02:42
PROVIDERS: ADMIT Hospitalist; ATTEND Internal Medicine
DX: O90.89 Other complications of the puerperium, not elsewhere classified (principal); K57.32 Diverticulitis of large intestine without perforation or abscess without bleeding; O86.20 Urinary tract infection following delivery, unspecified; Z90.49 Acquired absence of other specified parts of digestive tract; Z87.891 Personal history of nicotine dependence; Z80.6 Family history of leukemia; Z80.41 Family history of malignant neoplasm of ovary; Z83.3 Family history of diabetes mellitus